=== PATIENT | male | born 1965 | race Caucasian/White ===

== ENCOUNTER 2019-09-19 14:24 | Emergency (ER) | payer MEDICAID ==
[~2019-09-19] VITALS: Ht 172.7 cm; Wt 91.0 kg
[2019-09-19 14:59] VITALS: BP 115/79
--- NOTE | 2019-09-19 15:00 | NUR ---
54 Y/O MALE PRESENTS TO ED WITH C/O BILATERAL LOWER EXTREMITY EDEMA. PER PT "I WAS AT A DOCTOR AND HE SAID TO COME IN AND RULE OUT CONGESTIVE HEART FAILURE. MY LEGS ARE SWOLLEN AND HAVE BEEN FOR A FEW WEEKS." NO C/O N/V/D, TRAUMA, SYNCOPE, CP, SOB. PT PLACED ON CONT PULSE OX, NIBP. BEDSIDE.
[2019-09-19 15:30] LABS: BASOPHILS # (AUTO) 0.04 x10^3/uL (0-0.1); BASOPHILS % (AUTO) 1 % (0-1); EOSINOPHILS # (AUTO) 0.16 x10^3/uL (0-0.4); EOSINOPHILS % (AUTO) 2 % (1-7); LYMPHOCYTES # (AUTO) 2.37 x10^3/uL (1-3.4); LYMPHOCYTES % (AUTO) 29 % (22-44); MD NO; MEAN CORPUSCULAR HEMOGLOBIN 30.4 pg (27.5-34.5); MEAN CORPUSCULAR HGB CONC 33.1 g/dL (33.2-36.2); MEAN CORPUSCULAR VOLUME 91.9 fL (81-97); MEAN PLATELET VOLUME 7.1 fL (7.4-10.4); MONOCYTES # (AUTO) 0.64 x10^3/uL (0.2-0.8); MONOCYTES % (AUTO) 8 % (2-9); NEUTROPHILS # (AUTO) 4.92 x10^3/uL (1.8-6.8); NEUTROPHILS % (AUTO) 61 % (42-75); PLATELET COUNT 301 x10^3/uL (130-400); RED BLOOD COUNT 4.43 x10^6/uL (4.38-5.82); RED CELL DISTRIBUTION WIDTH 13.3 % (9.4-14.8)
[2019-09-19 15:40] LABS: ALANINE AMINOTRANSFERASE 29 U/L (12-78); ALBUMIN 3.3 g/dL (3.4-5.0); ANION GAP 6 mmol/L (5-15); CALCIUM 8.4 mg/dL (8.5-10.1); CHLORIDE 109 mmol/L (98-107); CREATININE 0.97 mg/dL (0.7-1.3)
[2019-09-19 15:45] LABS: ALKALINE PHOSPHATASE 89 U/L (45-117); BILIRUBIN,TOTAL 0.2 mg/dL (0.2-1.0)
--- NOTE | 2019-09-19 16:32 | NUR ---
Patient/Caregiver given discharge instructions and they have confirmed that they understand the instructions. Patient ambulatory with steady gait. PT LEFT WITH ALL PERSONAL BELONGINGS.
== END 2019-09-19 16:34 | disposition home or self-care (01) ==
LOC: ED 16:16
DX: R60.0 Localized edema (principal); I49.3 Ventricular premature depolarization; M10.9 Gout, unspecified; F17.210 Nicotine dependence, cigarettes, uncomplicated
CPT/HCPCS: 36415; 71046; 80053; 83880; 85025; 93005; 99285; 99406